=== PATIENT | female | born 1965 | race Caucasian/White ===

== ENCOUNTER 2017-02-05 19:51 | Emergency (ER) | payer OTHER ==
[2017-02-05 20:03] VITALS: BP 147/85; PULSE 91; RESP 18; TEMP 98
--- NOTE | 2017-02-05 20:28 | ED ---
Back Pain HPI - General Chief Complaint: Back Pain/Injury Stated Complaint: Back Pain Time Seen by Provider: 02/05/17 20:05 Source: patient Limitations: no limitations - Related Data Previous Rx's Medication Instructions Recorded Gabapentin 600 mg PO TID #20 02/05/17 HYDROcodone/APAP 10-325MG [[place] 1 each PO Q6H PRN #20 tab 02/05/17 10-325] Allergies Allergy/AdvReac Type Severity Reaction Status Date / Time morphine Allergy Rash/Hives Verified 02/05/17 20:03 Sulfa (Sulfonamide AdvReac Nausea Verified 02/05/17 20:03 Antibiotics) Review of Systems ROS Statement: Those systems with pertinent positive or pertinent negative responses have been documented in the HPI. ROS Other: All systems not noted in ROS Statement are negative. Past Medical History Past Medical History: Fibromyalgia, Hypertension Additional Past Medical History / Comment(s): back pain; Disc herniation at L2 and L3. History of Any Multi-Drug Resistant Organisms: None Reported Past Surgical History: Back Surgery Past Psychological History: No Psychological Hx Reported Smoking Status: Current every day smoker Past Alcohol Use History: None Reported Past Drug Use History: None Reported General Exam Limitations: no limitations Course Vital Signs 02/05/17 20:00 Temperature 98.0 F Pulse Rate 91 Respiratory 18 Rate Blood Pressure 147/85 O2 Sat by Pulse 100 Oximetry Disposition Clinical Impression: Lumbar back pain with radiculopathy affecting right lower extremity Disposition: HOME SELF-CARE Condition: Good Instructions: Lumbar Radiculopathy (ED), Lower Back Exercises (ED) Additional Instructions: Follow-up with primary care physician on as previously scheduled. Please return to the emergency department if symptoms do not improve or get worse. Prescriptions: Gabapentin 600 mg PO TID #20 HYDROcodone/APAP 10-325MG [[place] 10-325] 1 each PO Q6H PRN #20 tab PRN Reason: Pain Referrals: None,Stated [Primary Care Provider] - 1-2 days Time of Disposition: 20:26
--- NOTE | 2017-02-05 21:45 | ED ---
Back Pain HPI - General Chief Complaint: Back Pain/Injury Stated Complaint: Back Pain Time Seen by Provider: 02/05/17 20:05 Source: patient Limitations: no limitations - History of Present Illness Initial Comments: Patient's a 51-year-old female with a medical history significant for chronic low back pain with right-sided lumbar radiculopathy presenting to the emergency department with complaints of exacerbation of her chronic pain. Patient states that 2 days ago she bent over in the shower to shave her legs and has since had increase in her pain. Patient currently complains of lumbar back pain rated 8 out of 10 radiating down her right leg to her toes associated with numbness and tingling. Patient states this is not a new finding. Patient denies chills, fevers, nausea, vomiting, shortness of breath, chest pain, abdominal pain, urinary or fecal incontinence, or saddle anesthesia. Patient states that she follows with Dr. Desai is her family doctor and is currently treated with Neurontin and [place]. Patient states that she took her last Hampton this morning and her last Neurontin 2 days ago and do not have an appointment to see her primary care physician until . Patient states that she received steroid injections for pain in November and is currently scheduled to undergo physical therapy in [place] on Tuesday. - Related Data Previous Rx's Medication Instructions Recorded Gabapentin 600 mg PO TID #20 02/05/17 HYDROcodone/APAP 10-325MG [[place] 1 each PO Q6H PRN #20 tab 02/05/17 10-325] Allergies Allergy/AdvReac Type Severity Reaction Status Date / Time morphine Allergy Rash/Hives Verified 02/05/17 20:03 Sulfa (Sulfonamide AdvReac Nausea Verified 02/05/17 20:03 Antibiotics) Review of Systems ROS Statement: Those systems with pertinent positive or pertinent negative responses have been documented in the HPI. ROS Other: All systems not noted in ROS Statement are negative. Past Medical History Past Medical History: Fibromyalgia, Hypertension Additional Past Medical History / Comment(s): back pain; Disc herniation at L2 and L3. History of Any Multi-Drug Resistant Organisms: None Reported Past Surgical History: Back Surgery Past Psychological History: No Psychological Hx Reported Smoking Status: Current every day smoker Past Alcohol Use History: None Reported Past Drug Use History: None Reported General Exam - General Exam Comments Initial Comments: GENERAL: Pt awake and alert, well-appearing, well-nourished, and in no acute distress. HEAD: Atraumatic, normocephalic. EYES: Pupils equal, round, sclera anicteric, conjunctiva are normal. ENT: Moist mucous membranes. NECK:Normal range of motion, supple without lymphadenopathy. LUNGS: Breath sounds diminished to auscultation bilaterally. No wheezes, rales , or rhonchi. HEART: Heart S1, S2, no S3 or S4. Regular rate and rhythm No murmurs, rubs or gallops. ABDOMEN: Soft, nontender, nondistended, normoactive bowel sounds. No guarding, no rebound. No masses or organomegaly appreciated. EXTREMITIES: 2+ peripheral pulses. No edema. No calf tenderness. MUSCULOSKELETAL: Patient has normal appearance her back no signs swelling or bruising. Vertebral tenderness at L2 to S1. Left sciatic point tenderness. Limited flexion and extension secondary to pain. Sensation intact to left foot. Strength is 5/5. No foot drop noted. NEUROLOGICAL: Pt oriented x 3. No focal deficits noted. Strength and sensation grossly intact. PSYCH: Normal mood, normal affect. SKIN: Warm, dry, intact. Normal turgor. No rashes or lesions. Course Vital Signs 02/05/17 20:00 Temperature 98.0 F Pulse Rate 91 Respiratory 18 Rate Blood Pressure 147/85 O2 Sat by Pulse 100 Oximetry Medical Decision Making - Medical Decision Making Acute on chronic lumbar radiculopathy. Patient given refill on all medications until she can get in and see her physician. Patient instructed to return to the emergency department with new worsening symptoms. Patient agrees with treatment plan. Disposition Clinical Impression: Lumbar back pain with radiculopathy affecting right lower extremity Disposition: HOME SELF-CARE Condition: Good Instructions: Lumbar Radiculopathy (ED), Lower Back Exercises (ED) Additional Instructions: Follow-up with primary care physician on as previously scheduled. Please return to the emergency department if symptoms do not improve or get worse. Prescriptions: Gabapentin 600 mg PO TID #20 HYDROcodone/APAP 10-325MG [[place] 10-325] 1 each PO Q6H PRN #20 tab PRN Reason: Pain Referrals: None,Stated [Primary Care Provider] - 1-2 days Time of Disposition: 21:55
== END 2017-02-05 20:40 | disposition home or self-care (01) ==
LOC: EC 19:51
DX: M54.16 Radiculopathy, lumbar region (principal); F17.200 Nicotine dependence, unspecified, uncomplicated; Z88.2 Allergy status to sulfonamides; Z88.5 Allergy status to narcotic agent; Z98.890 Other specified postprocedural states
CPT/HCPCS: 99283

== ENCOUNTER 2017-08-09 18:17 | Emergency (ER) | payer OTHER ==
[2017-08-09 18:26] VITALS: RESP 18
[2017-08-09] MEDS ORDERED: RX INFO: IV CONTRAST WAS GIVEN 1 EACH MISC MISCELLANE PRN (19:03)
--- NOTE | 2017-08-09 19:17 | ED ---
General Adult HPI - General Chief complaint: Recheck/Abnormal Lab/Rx Stated complaint: Bowel Incontinence Time Seen by Provider: 08/09/17 18:39 Source: patient Mode of arrival: ambulatory Limitations: no limitations - History of Present Illness Initial comments: patient is a 51-year-old female presents with a chief complaint of bowel incontinence. Patient states that over the last 2 months, she has intermittently had bowel incontinence. She states that over the last week that it is been consistent. The patient states that she is not having solid stools and that she does not know when she is having an accident. She cannot identify any inciting incidences. There are no aggravating or alleviating factors. When her symptoms started, the patient was sent to [facility] where she had an MRI that, according to the patient, did not show any worsening of her herniated disks, and did not show any fecal sac pathology. Patient has been seeing her primary care physician for this issue and states that she is supposed to have a colonoscopy. Patient has a significant medical history of hypertension and fibromyalgia. - Related Data Home Medications Medication Instructions Recorded Confirmed Cyclobenzaprine [Flexeril] 10 mg PO HS 08/09/17 08/09/17 Gabapentin 800 mg PO TID 08/09/17 08/09/17 Naproxen Sodium [Aleve] 220 mg PO BID PRN 08/09/17 08/09/17 traMADol HCL [Ultram] 50 mg PO Q6HR PRN 08/09/17 08/09/17 Allergies Allergy/AdvReac Type Severity Reaction Status Date / Time morphine AdvReac Nausea & Verified 08/09/17 19:08 Vomiting & Diarrhea Sulfa (Sulfonamide AdvReac Nausea & Verified 08/09/17 19:08 Antibiotics) Vomiting & Diarrhea Review of Systems ROS Statement: Those systems with pertinent positive or pertinent negative responses have been documented in the HPI. ROS Other: All systems not noted in ROS Statement are negative. Constitutional: Denies: fever Eyes: Denies: vision change ENT: Denies: ear pain, throat pain Respiratory: Denies: cough Cardiovascular: Denies: chest pain Endocrine: Denies: fatigue Gastrointestinal: Denies: abdominal pain, nausea, vomiting Genitourinary: Denies: dysuria Musculoskeletal: Reports: back pain Skin: Denies: rash, lesions Neurological: Reports: other (bowel incontinence). Denies: headache Past Medical History Past Medical History: Fibromyalgia, Hypertension Additional Past Medical History / Comment(s): back pain; Disc herniation at L2 and L3. History of Any Multi-Drug Resistant Organisms: None Reported Past Surgical History: Back Surgery Past Psychological History: No Psychological Hx Reported Smoking Status: Current every day smoker Past Alcohol Use History: None Reported Past Drug Use History: None Reported General Exam Limitations: no limitations General appearance: alert, in no apparent distress Head exam: Present: atraumatic, normocephalic ENT exam: Present: mucous membranes moist Respiratory exam: Present: normal lung sounds bilaterally Cardiovascular Exam: Present: regular rate, normal rhythm GI/Abdominal exam: Present: soft. Absent: distended, tenderness Rectal exam: Present: normal inspection, decreased rectal tone. Absent: fecal impaction, hemorrhoids, mass, tenderness Back exam: Present: tenderness (patient is tenderness palpation of the lower paraspinal muscles) Neurological exam: Present: alert, oriented X3, CN II-XII intact, normal gait, motor sensory deficit (on rectal exam, patient does not have any appreciable rectal tone. Patient has absent bilateral patellar reflexes. She has a 1+ reflex in the left Achilles tendon, there is no reflex present in the right Achilles tendon. Patient is able to ambulate without assistance. Neurologic examination is otherwise noncontributory) Psychiatric exam: Present: anxious Skin exam: Present: warm, dry, intact Course Vital Signs 08/09/17 08/09/17 18:20 20:56 Temperature 97.8 F Pulse Rate 108 H 95 Respiratory 18 18 Rate Blood Pressure 149/81 149/78 O2 Sat by Pulse 100 100 Oximetry Medical Decision Making - Medical Decision Making patient presents with a chief complaint of bowel incontinence. This has been going on for 2 months however acutely worse where she is not able to feel any bowel movements over the last week. Patient was evaluated by neurosurgery at [facility] however her workup was negative.intent was made to obtain her MRI records however were told that they would not be able to get to us tonight. I spoke with Dr. Flores in [facility] emergency department to try to ascertain her records however he was unable to access those records. patient will have basic abdominal lab work. patient will have a CT of the abdomen and pelvis with contrast and also a CT evaluation of the lumbar spine. we'll check postvoid residual etiologies such as cauda equina were considered however given a previously normal MRI 2 months ago, this is less likely. Considered infectious etiology such as Guillain-West however patient does not admit to any recent history of GI illness, and she does not report decreased sensation and is able to ambulate well. 9:23 PM Laboratory evaluation this patient is unremarkable. Computed tomography scan of the abdomen and pelvis with contrast shows diverticulosis without evidence of diverticulitis. There is no intra-abdominal abnormality. CT of the lumbar spine redemonstrates previously known herniated disks. There is mild stenosis of the central canal in the L5-S1 area. I called and spoke with Dr. Viveros at [facility] and was able to discuss patient's previous results. Is able to confirm that the objective physical findings are new and therefore the patient will be transferred to their ER for neurosurgery consultation. I discussed the findings and care plan with the patient, she is agreeable. - Lab Data Result diagrams: 08/09/17 19:34 08/09/17 19:23 Lab Results 08/09/17 08/09/17 Range/Units 19:23 19:34 WBC 7.0 (3.8-10.6) k/uL RBC 4.40 (3.80-5.40) m/uL Hgb 13.1 (11.4-16.0) gm/dL Hct 39.9 (34.0-46.0) % MCV 90.6 (80.0-100.0) fL MCH 29.7 (25.0-35.0) pg MCHC 32.8 (31.0-37.0) g/dL RDW 14.5 (11.5-15.5) % Plt Count 273 (150-450) k/uL Neutrophils % 65 % Lymphocytes % 27 % Monocytes % 4 % Eosinophils % 2 % Basophils % 0 % Neutrophils # 4.6 (1.3-7.7) k/uL Lymphocytes # 1.9 (1.0-4.8) k/uL Monocytes # 0.3 (0-1.0) k/uL Eosinophils # 0.1 (0-0.7) k/uL Basophils # 0.0 (0-0.2) k/uL Sodium 139 (137-145) mmol/L Potassium 4.5 (3.5-5.1) mmol/L Chloride 109 H (98-107) mmol/L Carbon Dioxide 22 (22-30) mmol/L Anion Gap 8 mmol/L BUN 13 (7-17) mg/dL Creatinine 0.58 (0.52-1.04) mg/dL Est GFR (MDRD) Af Amer >60 (>60 ml/min/1.73 sqM) Est GFR (MDRD) Non-Af >60 (>60 ml/min/1.73 sqM) Glucose 82 (74-99) mg/dL Calcium 9.7 (8.4-10.2) mg/dL Total Bilirubin 0.9 (0.2-1.3) mg/dL AST 43 H (14-36) U/L ALT 16 (9-52) U/L Alkaline Phosphatase 99 (38-126) U/L Total Protein 7.2 (6.3-8.2) g/dL Albumin 4.2 (3.5-5.0) g/dL Lipase 38 (23-300) U/L Disposition Clinical Impression: Bowel incontinence Disposition: OTHER INSTITUTION NOT DEFINED Condition: Fair Referrals: Gila Abraham DO [Primary Care Provider] - 1-2 days - Out of Hospital Transfer - Req. Specs Out of Hospital Transfer - Requested Specifics: Other Emergency Center ([facility])
[2017-08-09 19:41] LABS: Basophils % (A) 0 %; CH 29.6; CHCM 32.8; Eosinophils # (A) 0.1 k/uL (0-0.7); Eosinophils % (A) 2 %; HCT 39.9 % (34.0-46.0); HGB 13.1 gm/dL (11.4-16.0); Luc # (Auto) 0.08; Luc % (Auto) 1; Lymphocytes # (A) 1.9 k/uL (1.0-4.8); Lymphocytes % (A) 27 %; MCH 29.7 pg (25.0-35.0); MCHC 32.8 g/dL (31.0-37.0); MCV 90.6 fL (80.0-100.0); Mean Platelet Volume 7.4; Monocytes # (A) 0.3 k/uL (0-1.0); Monocytes % (A) 4 %; Neutrophils # (A) 4.6 k/uL (1.3-7.7); Neutrophils % (A) 65 %; RDW 14.5 % (11.5-15.5); WBC (Perox) 7.27
[2017-08-09 19:58] LABS: ALT 16 U/L (9-52); AST 43 U/L (14-36); Alkaline Phosphatase 99 U/L (38-126); Anion Gap 8 mmol/L; Blood Urea Nitrogen 13 mg/dL (7-17); Calcium 9.7 mg/dL (8.4-10.2); Carbon Dioxide 22 mmol/L (22-30); Chloride 109 mmol/L (98-107); Glucose 82 mg/dL (74-99); Non-African American GFR(MDRD) >60 (>60 ml/min/1.73 sqM); Sodium 139 mmol/L (137-145); Total Bilirubin 0.9 mg/dL (0.2-1.3); Total Protein 7.2 g/dL (6.3-8.2)
[2017-08-09 19:59] LABS: Potassium 4.5 mmol/L (3.5-5.1)
[2017-08-09] MEDS ORDERED: DIAZEPAM 5 MG TAB PO STA (20:19)
--- NOTE | 2017-08-09 21:02 | CT ---
EXAMINATION TYPE: CT lumbar spine wo con DATE OF EXAM: 08/09/2017 8:47 PM COMPARISON: NONE HISTORY: Low back pain with uncomtrolled bowel movements CT DLP: 484.7 mGycm Automated exposure control for dose reduction was used. Unenhanced CT of the lumbar spine was performed. Bone and soft tissue window settings are submitted as well as coronal and sagittal reconstructions. The lumbar vertebra have normal alignment. There is mild narrowing at L5-S1 disc space. The posterior elements are intact. There is no compression fracture. There is no lumbar paraspinal mass. Facet lee ann nts are intact. Sacroiliac joints appear normal. There is no evidence of lumbar spinal stenosis. Ther e is small posterior disc bulging at L4-5 and L3-4. Abdominal aorta is atheromatous. IMPRESSION: Small posterior disc herniations. No spinal stenosis. No fracture. Mild spondylosis at L5-S1.
--- NOTE | 2017-08-09 21:05 | CT ---
EXAMINATION TYPE: CT abdomen pelvis w con DATE OF EXAM: 08/09/2017 COMPARISON: NONE HISTORY: Low back pain with uncomtrolled bowel movements CT DLP: 618.1 mGycm Automated exposure control for dose reduction was used. TECHNIQUE: Helical acquisition of images was performed from the lung bases through the pelvis. CONTRAST: Performed without Oral Contrast and with IV Contrast, patient injected with 100 mL of Omnipaque 300. FINDINGS: Lung bases show subsegmental atelectasis posteriorly. There is no pleural effusion. Liver spleen pancreas gallbladder appear normal. Bile ducts are not dilated. There is no adrenal mass. Kidneys show satisfactory contrast opacification. There is no hydronephrosi s. Abdominal aorta is atheromatous. There is no retroperitoneal adenopathy. There is no ascites. Blad ubaldo distends smoothly. There is no sign of a pelvic mass. Appendix appears normal. I see no intestina l wall thickening. There are no dilated loops. There are a few colonic diverticula. There is no sign of diverticulitis. I see no bony destructive process. IMPRESSION: MILD COLONIC DIVERTICULOSIS. NO EVIDENCE OF DIVERTICULITIS. NO SIGN OF ACUTE ABDOMEN AND PELVIS. NORM AL APPENDIX. MINIMAL SUBSEGMENTAL ATELECTASIS AT THE POSTERIOR LUNG BASES.
[2017-08-09 22:00] VITALS: BP 140/97; PULSE 87; TEMP 98
[2017-08-09] MEDS ORDERED: SODIUM CHLORIDE 0.9% 1,000 ML IV SCH (22:00)
== END 2017-08-09 22:18 | disposition other institution (70) ==
LOC: EC 18:17
DX: R15.9 Full incontinence of feces (principal); K57.90 Diverticulosis of intestine, part unspecified, without perforation or abscess without bleeding; M48.07 Spinal stenosis, lumbosacral region; M79.7 Fibromyalgia; F17.200 Nicotine dependence, unspecified, uncomplicated; Z79.899 Other long term (current) drug therapy; Z88.2 Allergy status to sulfonamides; Z88.5 Allergy status to narcotic agent
CPT/HCPCS: 36415; 80053; 83690; 85025; 72131; 74177; 99284; Q9967

== ENCOUNTER 2018-02-02 20:48 | Emergency (ER) | payer OTHER ==
[2018-02-02 21:08] VITALS: BP 159/86; PULSE 110; RESP 20; TEMP 97.9
--- NOTE | 2018-02-02 21:29 | ED ---
Skin/Abscess/FB HPI - General Chief complaint: Skin/Abscess/Foreign Body Stated complaint: rash all over Time Seen by Provider: 02/02/18 21:19 Source: patient Mode of arrival: ambulatory Limitations: no limitations - History of Present Illness Initial comments: This patient is a 52-year-old woman who presents with complaint of 2-3 days of a progressive rash with pruritus. She states that the rash is at the intertriginous areas of the groin bilaterally and also to the inframammary area bilaterally. The patient's niece also had a similar rash going on over the past few weeks and was recently diagnosed with scabies. MD complaint: rash Onset/Timin -: days(s) Tetanus Up to Date: yes Location: generalized Severity: mild Quality: other Consistency: constant Improves with: none Worsens with: none Context: none Associated symptoms: itching - Related Data Home Medications Medication Instructions Recorded Confirmed Cyclobenzaprine [Flexeril] 10 mg PO HS 08/09/17 08/09/17 Gabapentin 800 mg PO TID 08/09/17 08/09/17 Naproxen Sodium [Aleve] 220 mg PO BID PRN 08/09/17 08/09/17 traMADol HCL [Ultram] 50 mg PO Q6HR PRN 08/09/17 08/09/17 Previous Rx's Medication Instructions Recorded Permethrin 5% Cream [Elimite] 1 applic TOPICAL ONCE #1 tube 02/02/18 hydrOXYzine HCL [Atarax] 50 mg PO QID PRN #24 tab 02/02/18 Allergies Allergy/AdvReac Type Severity Reaction Status Date / Time morphine AdvReac Nausea & Verified 02/02/18 21:08 Vomiting & Diarrhea Sulfa (Sulfonamide AdvReac Nausea & Verified 02/02/18 21:08 Antibiotics) Vomiting & Diarrhea Review of Systems ROS Statement: Those systems with pertinent positive or pertinent negative responses have been documented in the HPI. ROS Other: All systems not noted in ROS Statement are negative. Constitutional: Denies: fever Eyes: Denies: eye discharge ENT: Denies: congestion Respiratory: Denies: cough, dyspnea Skin: Reports: rash, pruritus Past Medical History Past Medical History: Fibromyalgia, Hypertension Additional Past Medical History / Comment(s): back pain; Disc herniation at L2 and L3. History of Any Multi-Drug Resistant Organisms: None Reported Past Surgical History: Back Surgery Past Psychological History: No Psychological Hx Reported Smoking Status: Current every day smoker Past Alcohol Use History: None Reported Past Drug Use History: None Reported General Exam Limitations: no limitations General appearance: alert, in no apparent distress Head exam: Present: atraumatic, normocephalic Eye exam: Present: normal appearance. Absent: scleral icterus, conjunctival injection ENT exam: Present: normal oropharynx Skin exam: Present: warm, dry, intact, normal color, rash (The patient has a papular rash to the trunk along the inframammary area and also along the intertriginous areas at the groin.) Course Vital Signs 02/02/18 21:05 Temperature 97.9 F Pulse Rate 110 H Respiratory 20 Rate Blood Pressure 159/86 O2 Sat by Pulse 96 Oximetry Disposition Clinical Impression: Scabies Disposition: HOME SELF-CARE Condition: Good Instructions: Scabies (ED) Prescriptions: hydrOXYzine HCL [Atarax] 50 mg PO QID PRN #24 tab PRN Reason: Itching Permethrin 5% Cream [Elimite] 1 applic TOPICAL ONCE #1 tube Is patient prescribed a controlled substance at d/c from ED?: No Referrals: Gila Abraham DO [Primary Care Provider] - 1-2 days
== END 2018-02-02 21:47 | disposition home or self-care (01) ==
LOC: EC 20:48
DX: B86 Scabies (principal); M79.7 Fibromyalgia; F17.200 Nicotine dependence, unspecified, uncomplicated; Z79.899 Other long term (current) drug therapy; Z88.5 Allergy status to narcotic agent; Z88.2 Allergy status to sulfonamides
CPT/HCPCS: 99282

== ENCOUNTER → 2018-04-05 | Outpatient (CLI) | payer OTHER ==
[2018-04-05 16:01] LABS: HCT 39.2 % (34.0-46.0); HGB 13.3 gm/dL (11.4-16.0); MCH 29.8 pg (25.0-35.0); MCV 87.8 fL (80.0-100.0); Mean Platelet Volume 6.6; Platelet Count 271 k/uL (150-450); RBC 4.46 m/uL (3.80-5.40); RDW 13.9 % (11.5-15.5); WBC 9.2 k/uL (3.8-10.6)
[2018-04-05 16:27] LABS: ALT 24 U/L (9-52); AST 23 U/L (14-36); Albumin 4.3 g/dL (3.5-5.0); Alkaline Phosphatase 114 U/L (38-126); Anion Gap 4 mmol/L; Blood Urea Nitrogen 19 mg/dL (7-17); C Reactive Protein 6.3 mg/L (<10.0); Calcium 9.7 mg/dL (8.4-10.2); Carbon Dioxide 31 mmol/L (22-30); Chloride 105 mmol/L (98-107); Glucose 86 mg/dL (74-99); Potassium 4.8 mmol/L (3.5-5.1); Sodium 140 mmol/L (137-145); Total Bilirubin 0.5 mg/dL (0.2-1.3); Total Protein 6.9 g/dL (6.3-8.2)
[2018-04-05 18:54] LABS: Erythrocyte Sedimentation Rate 46 mm/hr (0-20)
[2018-04-06 01:46] LABS: Gliadin AB IgA, Unit <0.2 U/mL
== END | disposition home or self-care (01) ==
LOC: LABWHC1 15:04
PROVIDERS: ATTEND Internal Medicine Gastroenterology
DX: K52.9 Noninfective gastroenteritis and colitis, unspecified (principal)
CPT/HCPCS: 36415; 80053; 83516; 83630; 85027; 85652; 86140; 87045; 87046; 87324; 87328; 87329

== ENCOUNTER → 2020-03-11 | Outpatient (CLI) | payer OTHER ==
--- NOTE | 2020-03-12 07:14 | US ---
EXAMINATION TYPE: US carotid duplex BILAT DATE OF EXAM: 03/11/2020 COMPARISON: NONE CLINICAL HISTORY: G45.8 TIA. TIA, left arm weakness EXAM MEASUREMENTS: RIGHT: Peak Systolic Velocity (PSV) cm/sec ----- Right CCA: 74.6 ----- Right ICA: 82.0 ----- Right ECA: 126 ICA/CCA ratio: 0.93 RIGHT: End Diastole cm/sec ----- Right CCA: 29.8 ----- Right ICA: 34.2 ----- Right ECA: 33.5 LEFT: Peak Systolic Velocity (PSV) cm/sec ----- Left CCA: 97.5 ----- Left ICA: 106 ----- Left ECA: 146 ICA/CCA ratio: 0.81 LEFT: End Diastole cm/sec ----- Left CCA: 39.1 ----- Left ICA: 50.9 ----- Left ECA: 32.2 VERTEBRALS (direction of flow): Right Vertebral: Antegrade Left Vertebral: Antegrade Rhythm: Normal IMPRESSION: Mild plaque right bifurcation. Mild-moderate plaque left bifurcation. Mildly increased v elocities left ECA Criteria for Assigning % of Stenosis / Diameter reduction (Estimation based on the indirect measurements of the internal carotid artery velocities (ICA PSV). 1. Normal (no stenosis)=ICA PSV < 125 cm/s: ratio < 2.0: ICA EDV<40 cm/s. 2. Less than 50% stenosis=ICA PSV < 125 cm/s: ratio < 2.0: ICA EDV<40 cm/s. 3. 50 to 69% stenosis=ICA PSV of 125 to 230 cm/s: ration 2.0 ? 4.0: ICA EDV 40-100 cm/s. 4. Greater than 70% stenosis to near occlusion= ICA PSV > 230 cm/s: ratio > 4.0: ICA EDV > 100 cm/s. 5. Near occlusion= ICA PSV velocities may be low or undetectable: variable ratio and ICA EDV. 6. Total occlusion=unable to detect flow.
== END | disposition home or self-care (01) ==
LOC: RADUSWWP 16:29
PROVIDERS: ATTEND Family Medicine
DX: I65.21 Occlusion and stenosis of right carotid artery (principal); I65.22 Occlusion and stenosis of left carotid artery
CPT/HCPCS: 93880

== ENCOUNTER 2025-04-04 16:13 | Emergency (ER) | payer OTHER ==
[2025-04-04 16:23] VITALS: RESP 18
--- NOTE | 2025-04-04 16:39 | ED ---
Back Pain HPI - General Chief Complaint: Back Pain/Injury Stated Complaint: low back pain Time Seen by Provider: 04/04/25 16:28 Source: patient, EMS Limitations: no limitations - History of Present Illness Initial Comments: 59-year-old female presenting with chief complaint of back pain. Patient is having pain in the lower back which radiates down the right leg. She has history of chronic back pain and has history of ruptured disc. She reports that the pain started a few days ago. She was seen at her PCP yesterday and was told that she needed an MRI, she then took EMS to [facility]. She was told that they did not have an MRI machine and she was discharged home after pain medication. She presents here today requesting an MRI, she still having the same pain. She denies any injury or trauma. No loss of bowel or bladder control or saddle paresthesia. No fever or chills. No abdominal pain. States that she does get numbness and tingling in her feet at times. She has been taking ibuprofen, Tylenol, tramadol, Flexeril. - Related Data Home Medications Medication Instructions Recorded Confirmed Cyclobenzaprine [Flexeril] 10 mg PO HS 08/09/17 02/02/18 Naproxen Sodium [Aleve] 220 mg PO BID PRN 08/09/17 02/02/18 traMADol HCL [Ultram] 50 mg PO Q6HR PRN 08/09/17 02/02/18 Diphenoxylate HCl/Atropine 2 tab PO QID PRN 02/02/18 02/02/18 [Lomotil 2.5-0.025 mg Tablet] Gabapentin [Neurontin] 600 mg PO TID 02/02/18 02/02/18 diphenhydrAMINE [Benadryl] 25 mg PO HS PRN 02/02/18 02/02/18 Previous Rx's Medication Instructions Recorded Permethrin 5% Cream [Elimite] 1 applic TOPICAL ONCE #1 tube 02/02/18 hydrOXYzine HCL [Atarax] 50 mg PO QID PRN #24 tab 02/02/18 Acetaminophen-Codeine 300-30mg 1 tab PO Q6H PRN 3 Days #12 tablet 04/04/25 [Tylenol w/codeine #3] methylPREDNISolone Dose Pack 4 mg PO DIRECTED #1 packet 04/04/25 [Medrol Dose Pack] Allergies Allergy/AdvReac Type Severity Reaction Status Date / Time morphine AdvReac Nausea & Verified 02/02/18 21:42 Vomiting & Diarrhea Sulfa (Sulfonamide AdvReac Nausea & Verified 02/02/18 21:42 Antibiotics) Vomiting & Diarrhea Review of Systems ROS Statement: Those systems with pertinent positive or pertinent negative responses have been documented in the HPI. ROS Other: All systems not noted in ROS Statement are negative. Past Medical History Past Medical History: Fibromyalgia, Hypertension Additional Past Medical History / Comment(s): back pain; Disc herniation at L2 and L3. History of Any Multi-Drug Resistant Organisms: None Reported Past Surgical History: Back Surgery Past Psychological History: No Psychological Hx Reported Smoking Status: Current every day smoker Past Alcohol Use History: None Reported Past Drug Use History: None Reported General Exam Limitations: no limitations General appearance: alert, anxious (crying) Head exam: Present: atraumatic, normocephalic, normal inspection Eye exam: Present: normal appearance, EOMI Neck exam: Present: normal inspection. Absent: meningismus Respiratory exam: Absent: respiratory distress, stridor Cardiovascular Exam: Present: tachycardia Back exam: Present: normal inspection, tenderness Neurological exam: Present: alert, oriented X3 Expanded Motor strength exam: RLE: 4, LLE: 4 Psychiatric exam: Present: normal affect, normal mood Skin exam: Present: warm, dry, normal color Course Vital Signs 04/04/25 04/04/25 04/04/25 16:18 17:12 19:02 Temperature 98.5 F 98.7 F Pulse Rate 122 H 102 H 102 H Respiratory 18 18 18 Rate Blood Pressure 193/133 166/111 182/90 O2 Sat by Pulse 97 97 98 Oximetry Medical Decision Making - Medical Decision Making Was pt. sent in by a medical professional or institution (, PA, CORE STACKER, urgent care, hospital, or jail...) When possible be specific @ -No Did you speak to anyone other than the patient for history (EMS, parent, family, police, friend...)? What history was obtained from this source @ -No Did you review nursing and triage notes (agree or disagree)? Why? @ -I reviewed and agree with nursing and triage notes Were old charts reviewed (outside hosp., previous admission, EMS record, old EKG, old radiological studies, urgent care reports/EKG's, jail records)? Report findings @ -Reviewed records from [place]. CT at their facility showed lumbar spondylosis with multilevel degenerative disc disease more severe at the L4-L5 and L5-S1 levels as described. Differential Diagnosis (chest pain, altered mental status, abdominal pain women, abdominal pain men, vaginal bleeding, weakness, fever, dyspnea, syncope, headache, dizziness, GI bleed, back pain, seizure, CVA, palpatations, mental health, musculoskeletal)? @ - [facility] Differential Back Pain: Strain, zoster, cauda equina syndrome, epidural abscess, vertebral osteomyelitis, discitis, fracture, subluxation, disc herniation, DJD, spinal stenosis, dissection, AAA, pancreatitis, peptic ulcer disease, pyelonephritis, kidney stone… this is not meant to be an all-inclusive list. EKG interpreted by me (3pts min.). @ -As above X-rays interpreted by me (1pt min.). @ -None done CT interpreted by me (1pt min.). @ -None done U/S interpreted by me (1pt. min.). @ -None done What testing was considered but not performed or refused? (CT, X-rays, U/S, labs)? Why? @ -None What meds were considered but not given or refused? Why? @ -None Did you discuss the management of the patient with other professionals (professionals i.e. , PA, CORE STACKER, lab, RT, psych nurse, social services manager, scrummaster, teacher, aerospace engineer officer armament, case managers)? Give summary @ -No Was smoking cessation discussed for >3mins.? @ -No Was critical care preformed (if so, how long)? @ -No Were there social determinants of health that impacted care today? How? (Homelessness, low income, unemployed, alcoholism, drug addiction, transportation, low edu. Level, literacy, decrease access to med. care, [facility], rehab)? @ -No Was there de-escalation of care discussed even if they declined (Discuss DNR or withdrawal of care, Hospice)? DNR status @ -No What co-morbidities impacted this encounter? (DM, HTN, Smoking, COPD, CAD, Cancer, CVA, ARF, Chemo, Hep., AIDS, mental health diagnosis, sleep apnea, morbid obesity)? @ -None Was patient admitted / discharged? Hospital course, mention meds given and route, prescriptions, significant lab abnormalities, going to OR and other pertinent info. @ -59-year-old female presenting with chief complaint of lower back pain. Denies injury or trauma, does have history of ruptured disc. No loss of bowel o r bladder control or saddle paresthesia. Pain is on the right side with radiation down the right leg. Patient given pain medication. She was able to ambulate according to nurse. She reports that her pain is well-controlled at this time. She is instructed to follow-up with her PCP and obtain outpatient MRI as ordered. Follow-up with PCP. Report back to ER with any new or worsening symptoms. Discussed return parameters and answered all questions. Patient conveyed verbal understanding and agreed to the plan. I discussed this case in detail with my attending Dr. Garner Undiagnosed new problem with uncertain prognosis? @ -No Drug Therapy requiring intensive monitoring for toxicity (Heparin, Nitro, Insulin, Cardizem)? @ -No Were any procedures done? @ -No Diagnosis/symptom? @ -Lumbar radiculopathy Acute, or Chronic, or Acute on Chronic? @ -Acute on chronic Uncomplicated (without systemic symptoms) or Complicated (systemic symptoms)? @ -Uncomplicated Side effects of treatment? @ -No Exacerbation, Progression, or Severe Exacerbation? @ -No Disposition Clinical Impression: Lumbar radiculopathy Disposition: HOME SELF-CARE Condition: Fair Instructions (If sedation given, give patient instructions): Acute Low Back Pain (ED) Additional Instructions: Follow-up with your PCP. You will need to make an outpatient appointment for an MRI. Follow-up with orthopedics. Report back to ER with any new or worsening symptoms. Prescriptions: methylPREDNISolone Dose Pack [Medrol Dose Pack] 4 mg PO DIRECTED #1 packet Acetaminophen-Codeine 300-30mg [Tylenol w/codeine #3] 1 tab PO Q6H PRN 3 Days #12 tablet PRN Reason: Pain Is patient prescribed a controlled substance at d/c from ED?: Yes When asked, does pt state using other controlled substances?: No If prescribed controlled substance>3 days was MAPS reviewed?: Prescribed <3 Days If opioid is for acute pain is fill amount 7 days or less?: Yes Referrals: None,Stated [REFERRING] - 1-2 days Jose Juan Garrison, [Doctor of Osteopathic Medicine] - 1-2 days Time of Disposition: 18:12
[2025-04-04] MEDS: LIDOCAINE 4% PATCH TOPICAL ONE (17:08)
[2025-04-04] MEDS: DEXAMETHASONE SOD PHOSPHATE 10 MG/ML 1 ML VIAL IVP STA (17:09)
[2025-04-04] MEDS: HYDROmorphone 1 MG/ML 1 ML SYRINGE IVP STA ×2 (17:11→18:52)
[2025-04-04 17:14] VITALS: PULSE 102
[2025-04-04 19:04] VITALS: BP 182/90; TEMP 98.7
== END 2025-04-04 19:04 | disposition home or self-care (01) ==
LOC: EC 16:13
DX: M54.16 Radiculopathy, lumbar region (principal); F17.200 Nicotine dependence, unspecified, uncomplicated; Z88.2 Allergy status to sulfonamides; Z88.1 Allergy status to other antibiotic agents; Z88.5 Allergy status to narcotic agent
CPT/HCPCS: 99284; 96374; 96375; J1100; J1171